=== PATIENT | female | born 1975 | race Two or more races ===

== ENCOUNTER 2019-04-11 11:40 | Emergency (ER) | payer MEDICAID ==
[~2019-04-11] VITALS: Ht 160 cm; Wt 76.2 kg
[~2019-04-11 11:40] MED LIST: ACET-1156 PO; NIF10C GT; NIF10C PO; PREN-153 OR; PRENCAP61 PO
[2019-04-11 11:56] VITALS: BP 152/98
== END 2019-04-11 12:12 | disposition home or self-care (01) ==
LOC: ER 11:40
DX: S66.911A Strain of unspecified muscle, fascia and tendon at wrist and hand level, right hand, initial encounter (principal); M77.9 Enthesopathy, unspecified; X58.XXXA Exposure to other specified factors, initial encounter; Y93.89 Activity, other specified; Y92.89 Other specified places as the place of occurrence of the external cause; Y99.8 Other external cause status
CPT/HCPCS: 29105

== ENCOUNTER 2023-03-25 10:13 | Emergency (ER) | payer MEDICAID ==
[~2023-03-25] VITALS: Ht 157.5 cm; Wt 77.7 kg
[~2023-03-25 10:13] MED LIST changes: -ACET-1156 PO; +ACET-1881 PO; -PREN-153 OR; +PREN1TAB71 OR
[2023-03-25 10:49] LABS: Urine Bacteria FEW /hpf (None Seen); Urine Blood Negative /uL (Negative); Urine Clarity Clear (Clear); Urine Protein, UAD Negative (Negative); Urine Specific Gravity 1.009 (1.001-1.035); Urine Urobilinogen Normal (Negative); Urine WBC 9 /hpf (0 - 5); Urine pH 6.5 (5.0-8.0)
[2023-03-25 10:50] LABS: Urine Color Straw (Yellow)
[2023-03-25 10:52] LABS: Basophils # (auto) 0.1 10 ^3/uL (0-0.2); Eosinophils # (auto) 0.3 10 ^3/uL (0-0.8); Hemoglobin 12.8 g/dL (12.2-16.2); Lymphocytes # (auto) 2.5 10 ^3/uL (0.4-5.4); Monocytes # (auto) 0.5 10 ^3/uL (0-1.3); Monocytes % (auto) 6.3 % (0.0-12.0); Neutrophils # (auto) 4.4 10 ^3/uL (1.6-8.6)
[2023-03-25 10:55] LABS: Basophils % (auto) 0.8 % (0.0-2.0); Hematocrit 37.7 % (36.0-46.0); Lymphocytes % (auto) 32.3 % (10.0-50.0); Mean Corpuscular Hemoglobin 29.1 pg (28.0-32.0); Mean Corpuscular Hgb Conc. 33.9 g/dL (32.0-36.0); Mean Corpuscular Volume 85.8 fL (80.0-100.0); Neutrophils % (auto) 56.6 % (37.0-80.0); Red Cell Distribution Width 14.7 % (11.8-14.3); White Blood Cell 7.7 10^3/uL (4.4-10.8)
[2023-03-25 11:01] LABS: Amphetamine Screen, Urine Neg (NEGATIVE); Barbiturate Scree,Urine Neg (NEGATIVE); Benzodiazephine Screen, Urine Neg (NEGATIVE); Cocaine Screen, Urine Neg (NEGATIVE)
[2023-03-25 11:02] LABS: Cannabinoid Screen, Urine Neg (NEGATIVE); Opiate Scree,Urine Neg (NEGATIVE); Phencyclidine Screen, Urine Neg (NEGATIVE)
[2023-03-25 11:13] LABS: Alanine Aminotransferase 30 U/L (7-40); Albumin 4.5 g/dL (3.2-4.8); Alkaline Phosphatase 77 U/L (46-116); Anion Gap 6.4 (5-15); Aspartate Aminotransferase 13 U/L (13-40); BUN/Creatinine Ratio 17.3 (10.0-20.0); Bilirubin, Total 0.4 mg/dL (0.2-1.0); Blood Urea Nitrogen 13 mg/dL (9-23); Calcium 9.5 mg/dL (8.5-10.1); Carbon Dioxide 27.6 mmol/L (20-30); Chloride 104 mmol/L (98-107); Glucose 118 mg/dL (74-106); Magnesium 1.9 mg/dL (1.6-2.6); Potassium 4.1 mmol/L (3.5-5.1); Sodium 138 mmol/L (136-145); Total Protein 7.6 g/dL (5.7-8.2)
[2023-03-25 11:25] LABS: Lipase 37 U/L (12-53)
[2023-03-25] MEDS ORDERED: ZOFR4T PO (13:10)
[2023-03-25] MEDS ORDERED: NITR-87 PO (13:11)
[2023-03-25] MEDS ORDERED: HYDR1TAB97 PO (13:13)
[2023-03-25] MEDS ORDERED: ONDANSETRON HCL 4 MG/2 ML VIAL IV ONE (14:00)
[2023-03-25] MEDS ORDERED: LABETALOL HCL 5 MG/ML 4ML SYRINGE IV ONE (14:00)
[2023-03-25] MEDS ORDERED: fentaNYL CITRATE 100 MCG/2 ML VL IV ONE (15:45)
[2023-03-25 16:30] VITALS: TEMP 98.1; O2SAT 97
[2023-03-25 16:32] VITALS: BP 153/94; PULSE 66; RESP 16
== END 2023-03-25 16:44 | disposition home or self-care (01) ==
LOC: ER 10:13
DX: N39.0 Urinary tract infection, site not specified (principal); R10.2 Pelvic and perineal pain; K82.4 Cholesterolosis of gallbladder; D25.9 Leiomyoma of uterus, unspecified; I10 Essential (primary) hypertension; Z79.899 Other long term (current) drug therapy
CPT/HCPCS: 36415; 74176; 76705; 76856; 80053; 80307; 81001; 81025; 83605; 83690; 83735; 84484; 84702; 85025; 96374; 96375; 99285; J2405; J3010; J3490